=== PATIENT | female | born 1995 ===

== ENCOUNTER 2017-12-07 20:17 | Outpatient (CLI) | payer OTHER ==
[~2017-12-07 20:17] MED LIST: PRENACARE TABL1 EACH PO
== END 2017-12-08 18:54 | disposition home or self-care (01) ==
LOC: OBS/DEL 20:17
DX: O36.8130 Decreased fetal movements, third trimester, not applicable or unspecified (principal)

== ENCOUNTER 2017-12-15 08:54 | Inpatient (IN) | payer OTHER ==
[~2017-12-15] VITALS: Ht 157.5 cm; Wt 240.0 kg
[2017-12-15] MEDS ORDERED: FE C TABLET1 EACH PO (14:22)
== END 2017-12-17 17:49 | disposition home or self-care (01) | DRG 775 ==
LOC: OB/GYN 08:54 → LDR 08:54 → OB/GYN 22:48
PROC: 10E0XZZ Delivery of Products of Conception, External Approach (ICD-10-PCS; principal; 2017-12-15)
PROC: 0HQ9XZZ Repair Perineum Skin, External Approach (ICD-10-PCS; 2017-12-15)
PROC: 4A1HXCZ Monitoring of Products of Conception, Cardiac Rate, External Approach (ICD-10-PCS; 2017-12-15)
PROC: 4A033R1 Measurement of Arterial Saturation, Peripheral, Percutaneous Approach (ICD-10-PCS; 2017-12-15)
DX: O70.0 First degree perineal laceration during delivery (principal); Z37.0 Single live birth; Z3A.39 39 weeks gestation of pregnancy